=== PATIENT | female | born 1975 | race Two or more races ===

== ENCOUNTER 2018-03-06 08:49 | Emergency (ER) | payer SELFPAY ==
[~2018-03-06] VITALS: Ht 144.8 cm; Wt 96.0 kg
[~2018-03-06 08:49] MED LIST: BISAC-EVAC10 MG PR; BISACODYL5 MG PO; DAILY VALUE1 EACH PO; DOCUSATE SODIU100 MG PO; HYPROST1 EACH PO; METRONIDAZOLE500 MG PO; MILK OF MAGNESI10 ML PO; MONISTAT VG; PRENATAL TABLE1 EAC3 PO; PROAIR HFA8.5 GM IH; SENNA8.6 MG PO; TEARS NATURALE-15 ML BOTH EYES
[2018-03-06 09:33] LABS: HEMATOCRIT 35.7 % (36.0-46.0); HEMOGLOBIN 11.9 G/DL (11.9-15.5); MCH 30.1 PG (29.0-34.0); MCHC 33.3 G/DL (30.0-36.0); MCV 90.2 FL (83-99); PLATELET COUNT 254 K/uL (156-360); RBC DIS.WIDTH-CV 13.4 % (11.8-14.6); RBC DIS.WIDTH-SD 44.3 % (39-53); RED BLOOD COUNT 3.96 M/uL (3.80-5.20); WHITE BLOOD COUNT 9.5 K/uL (4.1-10.2)
[2018-03-06 09:43] LABS: CHLORIDE 105 mEq/L (99-109); POTASSIUM 3.7 mEq/L (3.7-5.4); SODIUM 139 mEq/L (136-147)
[2018-03-06 09:45] LABS: GLUCOSE 99 mg/dL (70-99)
[2018-03-06 09:47] LABS: APPEARANCE CLEAR ((CLEAR)); BILIRUBIN NEGATIVE; BLOOD NEGATIVE; COLOR STRAW ((YELLOW)); GLUCOSE (STRIP) NEGATIVE; KETONES NEGATIVE; LEUKOCYTES NEGATIVE; NITRITE NEGATIVE; PROTEIN (STRIP) NEGATIVE; SPECIFIC GRAVITY 1.005 (1.000-1.030); UCUL ADDED? NO; UROBILINOGEN 0.2 MG/DL (0.2-1.0)
[2018-03-06 09:49] LABS: CREATININE 0.6 mg/dL (0.6-1.3); GFR ESTIMATE (CALCULATED) > 59 mL/min/
[2018-03-06 09:50] LABS: UREA NITROGEN (BUN) 12 mg/dL (9-23)
[2018-03-06 09:51] LABS: CREATINE KINASE 54 IU/L (1-294); TOTAL CK 54 IU/L (1-294)
[2018-03-06 10:00] LABS: CK-MB 1.2 ng/mL (0.0-4.9); CKMB RELATIVE INDEX 2.2 (0.0-3.9)
[2018-03-06 10:17] LABS: QUANTITATIVE HCG < 4.0 MIU/ML
[2018-03-06 12:05] VITALS: BP 152/101
== END 2018-03-06 12:06 | disposition home or self-care (01) ==
LOC: EME → EDBD 08:49 → EME 08:49
PROVIDERS: Emergency Medicine
DX: R10.9 Unspecified abdominal pain (principal); R53.1 Weakness; R53.83 Other fatigue; E11.9 Type 2 diabetes mellitus without complications; J45.909 Unspecified asthma, uncomplicated; Z59.0 Homelessness
CPT/HCPCS: 74176; 80048; 81003; 82550; 82553; 83605; 84702; 85027; 87086; 99281; 99284; J7030

== ENCOUNTER 2018-03-18 13:34 | Emergency (ER) | payer OTHER ==
[~2018-03-18] VITALS: Ht 144.8 cm; Wt 88.6 kg
[2018-03-18 16:28] VITALS: BP 127/65
== END 2018-03-18 17:00 | disposition home or self-care (01) ==
LOC: EME 13:34
DX: S93.401A Sprain of unspecified ligament of right ankle, initial encounter (principal); X58.XXXA Exposure to other specified factors, initial encounter; Z59.0 Homelessness; E11.9 Type 2 diabetes mellitus without complications; J45.909 Unspecified asthma, uncomplicated; E73.9 Lactose intolerance, unspecified; Z88.8 Allergy status to other drugs, medicaments and biological substances
CPT/HCPCS: 73610; 84702; 99281; 99284

== ENCOUNTER 2018-03-20 21:25 | Emergency (ER) | payer OTHER ==
[~2018-03-20] VITALS: Ht 144.8 cm; Wt 97.1 kg
[2018-03-20 22:55] LABS: HEMOGLOBIN 11.5 G/DL (11.9-15.5); MCH 30.1 PG (29.0-34.0); MCHC 32.9 G/DL (30.0-36.0); MCV 91.6 FL (83-99); PLATELET COUNT 294 K/uL (156-360); RBC DIS.WIDTH-CV 13.6 % (11.8-14.6); RBC DIS.WIDTH-SD 45.6 % (39-53); RED BLOOD COUNT 3.82 M/uL (3.80-5.20); WHITE BLOOD COUNT 8.8 K/uL (4.1-10.2)
[2018-03-20 23:08] LABS: CHLORIDE 108 mEq/L (99-109); POTASSIUM 3.5 mEq/L (3.7-5.4); SODIUM 141 mEq/L (136-147)
[2018-03-20 23:10] LABS: GLUCOSE 118 mg/dL (70-99)
[2018-03-20 23:14] LABS: CREATININE 0.7 mg/dL (0.6-1.3); GFR ESTIMATE (CALCULATED) > 59 mL/min/
[2018-03-20 23:15] LABS: UREA NITROGEN (BUN) 17 mg/dL (9-23)
[2018-03-21 01:20] VITALS: BP 113/66
== END 2018-03-21 01:21 | disposition home or self-care (01) ==
LOC: EME 21:25
PROVIDERS: Emergency Medicine
DX: S93.401A Sprain of unspecified ligament of right ankle, initial encounter (principal); W19.XXXA Unspecified fall, initial encounter; R93.7 Abnormal findings on diagnostic imaging of other parts of musculoskeletal system; E73.9 Lactose intolerance, unspecified; Z91.041 Radiographic dye allergy status
CPT/HCPCS: 70450; 73630; 80048; 83880; 85027; 93971; 99281; 99284